=== PATIENT | female | born 1940 | race Caucasian/White ===

== ENCOUNTER 2025-05-21 11:09 | Emergency (ER) | payer MEDICARE, MEDICAID ==
[2025-05-21] VITALS (7 sets, daily range): BP systolic 127–158; BP diastolic 41–104; PULSE 79–102; RESP 19–30; TEMP 97.6–97.7; O2SAT 100
[~2025-05-21] VITALS: Ht 157.5 cm; Wt 55.2 kg
[2025-05-21 12:34] LABS: BASOPHILS % (AUTO) 0.4 % (0.0-2.0); EOSINOPHILS % (AUTO) 0.3 % (1.0-6.0); LYMPHOCYTES # (AUTO) 0.5 K/uL (1.0-4.8); LYMPHOCYTES % (AUTO) 8.4 % (22.0-44.0); MEAN CORPUSCULAR HEMOGLOBIN 28.5 pg (26.0-34.0); MEAN CORPUSCULAR HGB CONC 31.8 G/dL (31.0-37.0); MEAN CORPUSCULAR VOLUME 90 fL (80-100); MONOCYTES # (AUTO) 0.4 K/uL (0.1-1.0); NEUTROPHILS # (AUTO) 4.9 K/uL (1.8-7.7); NEUTROPHILS % (AUTO) 83.9 % (40.0-70.0); PLATELET COUNT (AUTO) 316 K/uL (150-450); RED BLOOD CELL COUNT(AUTO) 1.79 MIL/uL (4.00-5.20); RED CELL DISTRIBUTION WIDTH 15.7 % (11.5-14.5); WHITE BLOOD COUNT (AUTO) 5.9 K/uL (4.5-11.0)
[2025-05-21 12:41] LABS: HEMATOCRIT 16.1 % (36-46); HEMOGLOBIN 5.1 g/dL (12.0-16.0)
[2025-05-21 12:45] LABS: CREATININE 1.97 mg/dL (0.60-1.30); POTASSIUM 4.6 mmol/L (3.5-5.1)
[2025-05-21 12:48] LABS: PROTHROMBIN TIME 10.8 SEC (9.4-11.6)
[2025-05-21 12:50] LABS: ALBUMIN 2.9 g/dL (3.4-5.0); BILIRUBIN,DIRECT 0.1 mg/dL (0.00-0.20); BILIRUBIN,TOTAL 0.3 mg/dL (0.1-1.0); TOTAL PROTEIN, SERUM 5.8 g/dL (6.4-8.2)
[2025-05-21] MEDS ORDERED: ATOR20TA65 PO (13:43)
[2025-05-21] MEDS ORDERED: METO-391 PO (13:43)
[2025-05-21] MEDS ORDERED: LOSA100T59 PO (13:43)
[2025-05-21] MEDS: SODIUM CHLORIDE 0.9% 1,000 ML IV ONE (13:55)
[2025-05-21 14:01] LABS: APPEARANCE,URINE HAZY (CLEAR); BILIRUBIN,URINE NEGATIVE (NEGATIVE); COLOR,URINE LIGHT YELLOW (YELLOW); GLUCOSE, URINE (UA) NEGATIVE (NEGATIVE); KETONES,URINE NEGATIVE (NEGATIVE); LEUKOCYTE ESTERASE ,URINE LARGE (NEGATIVE); NITRATE,URINE NEGATIVE (NEGATIVE); OCCULT BLOOD,URINE LARGE (NEGATIVE); PH,URINE 5.5 (5.0-8.0); PROTEIN,URINE TRACE mg/dL (NEGATIVE); SPECIFIC GRAVITIY, URINE 1.013 (1.003-1.030); UROBILINOGEN,URINE <=1.0 mg/dL (<=1.0)
[2025-05-21 14:06] LABS: BACTERIA,URINE Many /HPF (None Seen); WBC,URINE 26-50 /HPF (0-5)
[2025-05-21 14:07] LABS: RBC,URINE 51-100 /HPF (0-2)
[2025-05-21 14:27] LABS: B-TYPE NATRIURETIC PEPTIDE 249 pg/mL (0-100)
[2025-05-21 14:29] LABS: CREATINE KINASE, TOTAL ONLY 34 U/L (26-192)
[2025-05-21 14:33] LABS: TROPONIN I-HIGH SENSITIVITY 20 ng/L (<51)
[2025-05-21] MEDS: CefTRIAXone 1 GM/DEXTROSE 50 ML IV ONE (19:43)
[2025-05-21 19:55] LABS: HEMATOCRIT 25.1 % (36-46); HEMOGLOBIN 8.2 g/dL (12.0-16.0)
[2025-05-21] MEDS: MORPHINE SULFATE 2 MG/ML SYRINGE IVP ONE (20:20)
[2025-05-21] MEDS: HydrALAZINE HCL 20 MG/ML VIAL IVP ONE (20:30)
== END 2025-05-21 21:55 | disposition short-term general hospital (02) ==
LOC: EMS 11:12
DX: D64.9 Anemia, unspecified (principal); N93.9 Abnormal uterine and vaginal bleeding, unspecified; R10.32 Left lower quadrant pain; I10 Essential (primary) hypertension; R06.02 Shortness of breath; E78.00 Pure hypercholesterolemia, unspecified; Z90.710 Acquired absence of both cervix and uterus; Z79.899 Other long term (current) drug therapy
CPT/HCPCS: 99285; 36430; 74176; 96365; 96361; 76856; 96375; 71045; 80048; 80076; 81001; 82550; 83880; 84484; 85025; 85610; 85730; 87086; 86850; 86900; 86901; 86923; 93005; 85018; 85014; 36415; P9016; J0696; J0360; J2270